=== PATIENT | female | born 1985 | race Two or more races ===

== ENCOUNTER 2024-11-11 14:10 | Emergency (ER) | payer OTHER ==
[~2024-11-11] VITALS: Ht 170.2 cm; Wt 75.0 kg
[2024-11-11 14:18] VITALS: BP 156/87; PULSE 79; TEMP 98.4; O2SAT 100
[2024-11-11] MEDS ORDERED: BUPR-94 PO (16:23)
[2024-11-11 16:32] VITALS: RESP 18
== END 2024-11-11 16:33 | disposition home or self-care (01) ==
LOC: ER 14:11
DX: Z76.0 Encounter for issue of repeat prescription (principal); Z79.899 Other long term (current) drug therapy
CPT/HCPCS: 99281